=== PATIENT | female | born 1945 | race Caucasian/White ===

== ENCOUNTER 2024-10-27 14:38 | Inpatient (IN) | payer MEDICARE, MEDICAID ==
[~2024-10-27] VITALS: Ht 162.6 cm; Wt 68.0 kg
[2024-10-27 15:13] VITALS: PULSE 64; RESP 16; O2SAT 92
[2024-10-27 15:37] LABS: BASOPHILS % (AUTO) 0.2 % (0-1); EOSINOPHILS % (AUTO) 0 % (0-6); HEMATOCRIT 34.9 % (35.0-45.0); HEMOGLOBIN 11.5 g/dl (12.0-16.0); LYMPHOCYTES # (AUTO) 1.7 X10'3 (1.1-4.8); LYMPHOCYTES % (AUTO) 8.2 % (21-51); MEAN CORPUSCULAR HEMOGLOBIN 30.1 PG (27.0-31.0); MEAN CORPUSCULAR HGB CONC 32.9 g/dL (33.0-36.5); MEAN CORPUSCULAR VOLUME 91.6 FL (78-98); MEAN PLATELET VOLUME 6.8 FL (7.4-10.4); MONOCYTES # (AUTO) 0.5 X10'3 (0-0.9); MONOCYTES % (AUTO) 2.2 % (2-12); NEUTROPHILS # (AUTO) 18.8 X10'3 (1.8-7.7); NEUTROPHILS % (AUTO) 89.4 % (42-75); PLATELET COUNT 305 X10'3 (140-440); RED BLOOD COUNT 3.81 X10'6 (4.20-5.60); RED CELL DISTRIBUTION WIDTH 16.6 % (11.5-14.5); WHITE BLOOD COUNT 21.1 X10'3 (4.5-11.0)
[2024-10-27 15:56] LABS: PLATELET ESTIMATE NORMAL; TOTAL CELLS COUNTED 100
[2024-10-27 15:57] LABS: ACANTHOCYTES 1+; ANISOCYTOSIS 1+
[2024-10-27 16:21] LABS: ALBUMIN 2.7 G/DL (3.4-5.0); ALBUMIN/GLOBULIN RATIO 0.7 (1.1-1.5); ALKALINE PHOSPHATASE 338 IU/L (46-116); ANION GAP 1 (8-16); ASPARTATE AMINO TRANSFERASE 713 U/L (10-37); BILIRUBIN,TOTAL 0.5 MG/DL (0.1-1.0); BLOOD UREA NITROGEN 22 MG/DL (7-18); BUN/CREATININE RATIO 41.5 (10.0-20.0); CALCIUM 9.3 MG/DL (8.5-10.1); CHLORIDE 96 MMOL/L (99-107); CREATININE 0.53 MG/DL (0.40-0.90); GLUCOSE 184 MG/DL (70-104); LIPASE 32 U/L (16-77); POTASSIUM 4.3 MMOL/L (3.5-5.1); SODIUM 131 MMOL/L (135-145); TOTAL PROTEIN 6.5 G/DL (6.4-8.2); eCRCL 73 ML/MIN; eGFR > 90 ML/MIN
[2024-10-27 16:24] LABS: ALANINE AMINOTRANSFERASE 3482 U/L (12-78)
[2024-10-27 17:02] LABS: BILIRUBIN,URINE NEGATIVE (Neg); CLARITY,URINE SLIGHTLY CLOUDY (Clear); COLOR,URINE YELLOW (Yellow); GLUCOSE, URINE NEGATIVE (Neg); KETONES,URINE NEGATIVE (Neg); LEUKOCYTE ESTERASE ,URINE LARGE (Neg); NITRITES, URINE POSITIVE (Neg); OCCULT BLOOD,URINE SMALL (Neg); PH,URINE 8.5 (4.8-8.0); PROTEIN,URINE 30 mg/dl (Neg)
[2024-10-27 17:09] LABS: UA COLLECTION TYPE FOLEY CATH
[2024-10-27] MEDS: piperacillin/tazo 3.375gm/50ml 50 ML IV SCH (17:10)
[2024-10-27 17:13] LABS: BACTERIA,URINE 4+ /HPF (Neg); SQUAMOUS EPITHELIAL CELL,UR NONE SEEN /LPF (FEW); TRIPLE PHOSPHATE CRYST 2+ /HPF (NEGATIVE); WBC,URINE TNTC /HPF (0-4)
[2024-10-27 17:14] LABS: YEAST MODERATE /HPF (NEGATIVE)
[2024-10-27 20:26] VITALS: PULSE 51; RESP 16; O2SAT 96
[2024-10-27] MEDS ORDERED: magnesium sulf-water 2g/50mL 50 ML IV PRN (22:00)
[2024-10-27] MEDS ORDERED: mag hydrox/Alum hydrox/simeth 30ml oral suspension PO PRN (22:00)
[2024-10-27] MEDS ORDERED: acetaminophen 325mg tablet PO PRN (22:00)
[2024-10-27] MEDS ORDERED: magnesium sulf-water 4G/100mL 100 ML IV PRN (22:00)
[2024-10-27] MEDS ORDERED: magnesium hydroxide 30ml (MOM) UD suspension PO PRN (22:00)
[2024-10-27] MEDS ORDERED: magnesium Cl slow-release 64mg tablet PO PRN (22:00)
[2024-10-27] MEDS ORDERED: ondansetron/PF 4mg/2ml inj IV PRN (22:00)
[2024-10-27] MEDS ORDERED: potassium Cl 20 mEq SR tablet PO PRN ×2 (22:00)
[2024-10-27] MEDS ORDERED: potassium Cl 40MEQ/1/2NS 520ml 520 ML IV PRN (22:00)
[2024-10-27] MEDS ORDERED: morphine 2 MG/ML inj. syringe IV PRN ×2 (22:00)
[2024-10-27] MEDS: PERFLUTREN PROTEIN-A MICROSPHR (Optison) 0.22 MG/ML 3ML VIAL IV ONE (22:15)
[2024-10-27] MEDS: normal saline 1000ml 1,000 ML IV SCH (22:18)
[2024-10-27 22:46] LABS: ACETAMINOPHEN < 2.0 UG/ML (10-30); HEMOGLOBIN A1C 7.2 % (4.5-6.2)
[2024-10-27 23:20] VITALS: PULSE 54; RESP 16; O2SAT 95
[2024-10-27 23:45] VITALS: BP 130/50; PULSE 56; RESP 15; RESP 22; TEMP 97.8; O2SAT 92; O2SAT 95
[2024-10-28] VITALS (14 sets, daily range): BP systolic 110–145; BP diastolic 55–88; PULSE 54–70; RESP 14–28; TEMP 96.7–98.4; O2SAT 88–97
[2024-10-28] MEDS: piperacillin/tazo 3.375gm/50ml 50 ML IV SCH (01:27)
[2024-10-28] MEDS ORDERED: ipratropium/albuterol 3ml nebule NEB PRN (04:15)
[2024-10-28 07:26] LABS: BASOPHILS % (AUTO) 0.3 % (0-1); EOSINOPHILS % (AUTO) 0.1 % (0-6); HEMATOCRIT 33.9 % (35.0-45.0); HEMOGLOBIN 11.5 g/dl (12.0-16.0); LYMPHOCYTES # (AUTO) 2.6 X10'3 (1.1-4.8); LYMPHOCYTES % (AUTO) 13.7 % (21-51); MEAN CORPUSCULAR HEMOGLOBIN 31.3 PG (27.0-31.0); MEAN CORPUSCULAR HGB CONC 33.8 g/dL (33.0-36.5); MEAN CORPUSCULAR VOLUME 92.5 FL (78-98); MEAN PLATELET VOLUME 6.8 FL (7.4-10.4); MONOCYTES # (AUTO) 1.1 X10'3 (0-0.9); MONOCYTES % (AUTO) 5.6 % (2-12); NEUTROPHILS # (AUTO) 15.2 X10'3 (1.8-7.7); NEUTROPHILS % (AUTO) 80.3 % (42-75); PLATELET COUNT 265 X10'3 (140-440); RED BLOOD COUNT 3.66 X10'6 (4.20-5.60); RED CELL DISTRIBUTION WIDTH 16.2 % (11.5-14.5); WHITE BLOOD COUNT 18.9 X10'3 (4.5-11.0)
[2024-10-28 07:37] LABS: ALBUMIN 2.6 G/DL (3.4-5.0); ALBUMIN/GLOBULIN RATIO 0.7 (1.1-1.5); ALKALINE PHOSPHATASE 283 IU/L (46-116); ANION GAP 5 (8-16); ASPARTATE AMINO TRANSFERASE 354 U/L (10-37); BILIRUBIN,TOTAL 0.6 MG/DL (0.1-1.0); BLOOD UREA NITROGEN 21 MG/DL (7-18); BUN/CREATININE RATIO 47.7 (10.0-20.0); CALCIUM 9.3 MG/DL (8.5-10.1); CHLORIDE 97 MMOL/L (99-107); CHOLESTEROL 156 MG/DL (0-200); CREATININE 0.44 MG/DL (0.40-0.90); GLUCOSE 85 MG/DL (70-104); HDL CHOLESTEROL 78 MG/DL (35-60); LDL CHOLESTEROL 45 MG/DL (50-100); MAGNESIUM 2.1 MG/DL (1.5-2.4); POTASSIUM 3.8 MMOL/L (3.5-5.1); SODIUM 133 MMOL/L (135-145); TOTAL CARBON DIOXIDE 30.8 MMOL/L (24-32); TOTAL PROTEIN 6.5 G/DL (6.4-8.2); TRIGLYCERIDES 119 MG/DL (20-135); eCRCL 88 ML/MIN; eGFR > 90 ML/MIN
[2024-10-28 07:48] LABS: ALANINE AMINOTRANSFERASE 2730 U/L (12-78)
[2024-10-28] MEDS: docusate sod 100mg capsule PO SCH (08:00)
[2024-10-28] MEDS: K and/or MAG REPLACEMENT MC SCH (08:00)
[2024-10-28 10:38] LABS: PRO BRAIN NATRIURETIC PEPTIDE 179 PG/ML (0-450)
[2024-10-28] MEDS ORDERED: iohexol 300mg/ml 100ml inj. ONE (11:18)
[2024-10-28] MEDS ORDERED: TIOT4MIS2 (14:01)
[2024-10-28] MEDS ORDERED: VALS40TA2 PO (14:01)
[2024-10-28] MEDS ORDERED: LIDO1ADH78 TOP (14:01)
[2024-10-28] MEDS ORDERED: TRAM50TA2 PO (14:01)
[2024-10-28] MEDS ORDERED: LEVO75TA7 PO (14:01)
[2024-10-28] MEDS ORDERED: FORM20VI IH (14:01)
[2024-10-28] MEDS ORDERED: SIME80TA15 PO (14:01)
[2024-10-28] MEDS ORDERED: MEMA10TA22 PO (14:01)
[2024-10-28] MEDS ORDERED: LOP12.5T PO (14:01)
[2024-10-28] MEDS ORDERED: AMLO5TAB PO (14:01)
[2024-10-28] MEDS ORDERED: AZIT250T83 PO (14:01)
[2024-10-28] MEDS ORDERED: THIA50TA10 PO (14:01)
[2024-10-28] MEDS ORDERED: BUDE0.5A11 NEB (14:01)
[2024-10-28] MEDS ORDERED: ALBU2.5V12 NEB (14:01)
[2024-10-28] MEDS ORDERED: SENN8.6T19 PO (14:01)
[2024-10-28] MEDS ORDERED: FAMO20TA8 PO (14:01)
[2024-10-28] MEDS ORDERED: APIX5TAB3 PO (14:01)
[2024-10-28] MEDS ORDERED: SODI1TAB2 PO (14:01)
[2024-10-28] MEDS ORDERED: acetylcysteine sol. 200 MG/ML 4ml vial PO SCH (17:30)
[2024-10-28] MEDS ORDERED: PRED10TA23 PO (17:37)
[2024-10-28] MEDS ORDERED: DOCU283E RC (17:37)
[2024-10-28] MEDS ORDERED: TIOT18CA3 INH (17:37)
[2024-10-28] MEDS ORDERED: ACET-1015 PO (17:37)
[2024-10-28] MEDS ORDERED: FURO40SO4 IV (17:37)
[2024-10-28] MEDS ORDERED: CYCL-920 PO (17:37)
[2024-10-28] MEDS ORDERED: LACT1CAP65 PO (17:37)
[2024-10-28] MEDS ORDERED: [UNRECOGNIZED DRUG - CODE] IV (17:37)
[2024-10-28] MEDS ORDERED: POLY17PO10 PO (17:37)
[2024-10-28] MEDS: acetylcysteine sol. 200 MG/ML 4ml vial PO SCH (21:57)
[2024-10-29] VITALS (16 sets, daily range): BP systolic 107–131; BP diastolic 48–70; PULSE 58–90; RESP 12–29; TEMP 96.2–97.3; O2SAT 84–95
[2024-10-29 07:06] LABS: BASOPHILS % (AUTO) 0.2 % (0-1); EOSINOPHILS # (AUTO) 0.1 X10'3 (0-0.9); EOSINOPHILS % (AUTO) 0.4 % (0-6); HEMATOCRIT 36.5 % (35.0-45.0); HEMOGLOBIN 11.9 g/dl (12.0-16.0); LYMPHOCYTES # (AUTO) 2.4 X10'3 (1.1-4.8); LYMPHOCYTES % (AUTO) 14.3 % (21-51); MEAN CORPUSCULAR HEMOGLOBIN 29.9 PG (27.0-31.0); MEAN CORPUSCULAR HGB CONC 32.5 g/dL (33.0-36.5); MEAN CORPUSCULAR VOLUME 91.8 FL (78-98); MEAN PLATELET VOLUME 7.2 FL (7.4-10.4); MONOCYTES # (AUTO) 1.1 X10'3 (0-0.9); MONOCYTES % (AUTO) 6.3 % (2-12); NEUTROPHILS # (AUTO) 13.4 X10'3 (1.8-7.7); NEUTROPHILS % (AUTO) 78.8 % (42-75); PLATELET COUNT 264 X10'3 (140-440); RED BLOOD COUNT 3.98 X10'6 (4.20-5.60); RED CELL DISTRIBUTION WIDTH 16.9 % (11.5-14.5)
[2024-10-29] MEDS: CefTRIAXone/D5W-Rocephin 1gm 50 ML IV SCH (07:33)
[2024-10-29 08:00] LABS: ALBUMIN 2.7 G/DL (3.4-5.0); ALBUMIN/GLOBULIN RATIO 0.7 (1.1-1.5); ALKALINE PHOSPHATASE 250 IU/L (46-116); ANION GAP 7 (8-16); ASPARTATE AMINO TRANSFERASE 166 U/L (10-37); BILIRUBIN,TOTAL 0.7 MG/DL (0.1-1.0); BLOOD UREA NITROGEN 17 MG/DL (7-18); BUN/CREATININE RATIO 45.9 (10.0-20.0); CALCIUM 9.3 MG/DL (8.5-10.1); CHLORIDE 97 MMOL/L (99-107); CREATININE 0.37 MG/DL (0.40-0.90); GLUCOSE 75 MG/DL (70-104); MAGNESIUM 2.1 MG/DL (1.5-2.4); POTASSIUM 3.6 MMOL/L (3.5-5.1); SODIUM 133 MMOL/L (135-145); TOTAL CARBON DIOXIDE 29.3 MMOL/L (24-32); TOTAL PROTEIN 6.6 G/DL (6.4-8.2); eCRCL 105 ML/MIN; eGFR > 90 ML/MIN
[2024-10-29 08:02] LABS: ALANINE AMINOTRANSFERASE 1965 U/L (12-78)
[2024-10-29] MEDS ORDERED: DOCUSATE SODIUM RC PRN (16:15)
[2024-10-29] MEDS ORDERED: DEXTROSE 15 GM of carb/4 tabs (each vial/BOTTLE has 4 tablets) PO PRN ×2 (16:20)
[2024-10-29] MEDS ORDERED: dextrose 50%-water 50ml dispensing syringe IV PRN ×2 (16:20)
[2024-10-29] MEDS ORDERED: glucagon, human recombinant 1mg kit SUBCUT PRN (16:20)
[2024-10-29] MEDS: INSULIN LISPRO 100 UNIT/ML INSULN.PEN MULTI-DOSE SQ SCH (17:00)
[2024-10-29] MEDS: budesonide 0.5mg/2ml UD nebule IH SCH (19:26)
[2024-10-29] MEDS: albuterol 2.5 MG/3 ML nebule NEB SCH (19:26)
[2024-10-29] MEDS: memantine 5mg tablet PO SCH (19:48)
[2024-10-29] MEDS: famotidine 20mg tablet PO SCH (19:48)
[2024-10-29] MEDS: apixaban 5mg tablet PO SCH (19:48)
[2024-10-29] MEDS: amLODIPine 5mg tablet PO SCH (19:49)
[2024-10-29] MEDS: metoprolol tartrate 12.5mg (1/2 tablet) PO SCH (19:50)
[2024-10-29] MEDS ORDERED: cyclobenzaprine 10mg tablet PO PRN (21:00)
[2024-10-30] VITALS (25 sets, daily range): BP systolic 80–133; BP diastolic 47–64; PULSE 52–68; RESP 13–21; TEMP 96.7–97.7; O2SAT 88–95
[2024-10-30 06:25] LABS: BASOPHILS % (AUTO) 0.1 % (0-1); EOSINOPHILS # (AUTO) 0.1 X10'3 (0-0.9); EOSINOPHILS % (AUTO) 0.4 % (0-6); HEMATOCRIT 31.2 % (35.0-45.0); HEMOGLOBIN 10.4 g/dl (12.0-16.0); LYMPHOCYTES # (AUTO) 2.5 X10'3 (1.1-4.8); LYMPHOCYTES % (AUTO) 15.1 % (21-51); MEAN CORPUSCULAR HEMOGLOBIN 30.9 PG (27.0-31.0); MEAN CORPUSCULAR HGB CONC 33.4 g/dL (33.0-36.5); MEAN CORPUSCULAR VOLUME 92.4 FL (78-98); MEAN PLATELET VOLUME 7.2 FL (7.4-10.4); MONOCYTES # (AUTO) 1.1 X10'3 (0-0.9); MONOCYTES % (AUTO) 6.8 % (2-12); NEUTROPHILS # (AUTO) 12.8 X10'3 (1.8-7.7); NEUTROPHILS % (AUTO) 77.6 % (42-75); PLATELET COUNT 238 X10'3 (140-440); RED BLOOD COUNT 3.38 X10'6 (4.20-5.60); RED CELL DISTRIBUTION WIDTH 16.6 % (11.5-14.5); WHITE BLOOD COUNT 16.5 X10'3 (4.5-11.0)
[2024-10-30 06:47] LABS: ALBUMIN 2.4 G/DL (3.4-5.0); ALBUMIN/GLOBULIN RATIO 0.7 (1.1-1.5); ALKALINE PHOSPHATASE 204 IU/L (46-116); ANION GAP 5 (8-16); ASPARTATE AMINO TRANSFERASE 68 U/L (10-37); BILIRUBIN,TOTAL 0.6 MG/DL (0.1-1.0); BLOOD UREA NITROGEN 22 MG/DL (7-18); BUN/CREATININE RATIO 52.4 (10.0-20.0); CHLORIDE 98 MMOL/L (99-107); CREATININE 0.42 MG/DL (0.40-0.90); GLUCOSE 105 MG/DL (70-104); POTASSIUM 3.7 MMOL/L (3.5-5.1); SODIUM 132 MMOL/L (135-145); TOTAL CARBON DIOXIDE 29.1 MMOL/L (24-32); TOTAL PROTEIN 5.9 G/DL (6.4-8.2); eCRCL 92 ML/MIN; eGFR > 90 ML/MIN
[2024-10-30 06:56] LABS: ALANINE AMINOTRANSFERASE 1227 U/L (12-78)
[2024-10-30 07:22] LABS: HBSAG SCREEN Negative (Negative); HEP A AB, IGM Negative (Negative); HEP B CORE AB, IGM Negative (Negative); HEP B CORE AB, TOT Negative (Negative); HEP B SURF AB Non Reactive (.)
[2024-10-30 07:25] LABS: PLATELET ESTIMATE NORMAL; TOTAL CELLS COUNTED 100
[2024-10-30 07:26] LABS: ANISOCYTOSIS 1+
[2024-10-30] MEDS: lactobacillus rhamnosus 10,000 MMU CELLS/CAPSULE PO SCH (07:53)
[2024-10-30] MEDS: levoTHYROXINE 75mcg tablet PO SCH (07:54)
[2024-10-30] MEDS ORDERED: SULF1TAB49 PO (13:04)
[2024-10-31] VITALS (26 sets, daily range): BP systolic 104–135; BP diastolic 46–59; PULSE 54–68; RESP 14–25; TEMP 97.4–98.1; O2SAT 87–97
[2024-10-31 06:40] LABS: ALANINE AMINOTRANSFERASE 841 U/L (12-78); ALBUMIN 2.3 G/DL (3.4-5.0); ALBUMIN/GLOBULIN RATIO 0.7 (1.1-1.5); ALKALINE PHOSPHATASE 173 IU/L (46-116); ANION GAP 6 (8-16); ASPARTATE AMINO TRANSFERASE 44 U/L (10-37); BILIRUBIN,TOTAL 0.6 MG/DL (0.1-1.0); BLOOD UREA NITROGEN 10 MG/DL (7-18); CALCIUM 8.6 MG/DL (8.5-10.1); CHLORIDE 100 MMOL/L (99-107); CREATININE 0.27 MG/DL (0.40-0.90); GLUCOSE 81 MG/DL (70-104); MAGNESIUM 1.9 MG/DL (1.5-2.4); POTASSIUM 3.3 MMOL/L (3.5-5.1); SODIUM 133 MMOL/L (135-145); TOTAL CARBON DIOXIDE 26.6 MMOL/L (24-32); TOTAL PROTEIN 5.6 G/DL (6.4-8.2); eCRCL 144 ML/MIN; eGFR > 90 ML/MIN
[2024-10-31 08:24] LABS: BASOPHILS # (AUTO) 0.1 X10'3 (0-0.2); BASOPHILS % (AUTO) 0.4 % (0-1); EOSINOPHILS # (AUTO) 0.1 X10'3 (0-0.9); EOSINOPHILS % (AUTO) 0.6 % (0-6); HEMATOCRIT 30.7 % (35.0-45.0); HEMOGLOBIN 10.1 g/dl (12.0-16.0); LYMPHOCYTES # (AUTO) 1.8 X10'3 (1.1-4.8); LYMPHOCYTES % (AUTO) 13.7 % (21-51); MEAN CORPUSCULAR HEMOGLOBIN 30.6 PG (27.0-31.0); MEAN CORPUSCULAR VOLUME 92.6 FL (78-98); MEAN PLATELET VOLUME 7.2 FL (7.4-10.4); MONOCYTES # (AUTO) 0.9 X10'3 (0-0.9); MONOCYTES % (AUTO) 6.8 % (2-12); NEUTROPHILS # (AUTO) 10.1 X10'3 (1.8-7.7); NEUTROPHILS % (AUTO) 78.5 % (42-75); PLATELET COUNT 185 X10'3 (140-440); RED BLOOD COUNT 3.32 X10'6 (4.20-5.60); RED CELL DISTRIBUTION WIDTH 17.1 % (11.5-14.5); WHITE BLOOD COUNT 12.9 X10'3 (4.5-11.0)
[2024-10-31] MEDS ORDERED: magnesium Cl slow-release 64mg tablet PO PRN (10:05)
[2024-10-31] MEDS ORDERED: potassium Cl 40MEQ/1/2NS 520ml 520 ML IV PRN (10:05)
[2024-10-31] MEDS ORDERED: potassium Cl 20 mEq SR tablet PO PRN (10:05)
[2024-10-31] MEDS ORDERED: magnesium sulf-water 2g/50mL 50 ML IV PRN (10:05)
[2024-10-31] MEDS ORDERED: magnesium sulf-water 4G/100mL 100 ML IV PRN (10:05)
[2024-10-31 11:56] LABS: PRO BRAIN NATRIURETIC PEPTIDE 261 PG/ML (0-450)
[2024-10-31] MEDS: potassium Cl 20 mEq SR tablet PO PRN (13:03)
[2024-10-31] MEDS: furosemide 20 MG/2 ML vial IV SCH (13:07)
[2024-10-31] MEDS: K and/or MAG REPLACEMENT MC SCH (20:00)
[2024-11-01] VITALS (12 sets, daily range): BP systolic 105–122; BP diastolic 52; PULSE 56–67; RESP 17–25; TEMP 97–97.9; O2SAT 90–97
[2024-11-01 06:58] LABS: BASOPHILS # (AUTO) 0.1 X10'3 (0-0.2); BASOPHILS % (AUTO) 0.4 % (0-1); EOSINOPHILS # (AUTO) 0.1 X10'3 (0-0.9); EOSINOPHILS % (AUTO) 0.9 % (0-6); HEMATOCRIT 30.2 % (35.0-45.0); HEMOGLOBIN 10.1 g/dl (12.0-16.0); LYMPHOCYTES # (AUTO) 1.8 X10'3 (1.1-4.8); LYMPHOCYTES % (AUTO) 14.5 % (21-51); MEAN CORPUSCULAR HEMOGLOBIN 30.9 PG (27.0-31.0); MEAN CORPUSCULAR HGB CONC 33.5 g/dL (33.0-36.5); MEAN CORPUSCULAR VOLUME 92.2 FL (78-98); MEAN PLATELET VOLUME 7.6 FL (7.4-10.4); MONOCYTES # (AUTO) 0.8 X10'3 (0-0.9); MONOCYTES % (AUTO) 6.3 % (2-12); NEUTROPHILS # (AUTO) 9.8 X10'3 (1.8-7.7); NEUTROPHILS % (AUTO) 77.9 % (42-75); PLATELET COUNT 210 X10'3 (140-440); RED BLOOD COUNT 3.28 X10'6 (4.20-5.60); RED CELL DISTRIBUTION WIDTH 16.9 % (11.5-14.5); WHITE BLOOD COUNT 12.6 X10'3 (4.5-11.0)
[2024-11-01 07:11] LABS: ALANINE AMINOTRANSFERASE 619 U/L (12-78); ALBUMIN 2.3 G/DL (3.4-5.0); ALBUMIN/GLOBULIN RATIO 0.6 (1.1-1.5); ALKALINE PHOSPHATASE 169 IU/L (46-116); ANION GAP 5 (8-16); ASPARTATE AMINO TRANSFERASE 29 U/L (10-37); BILIRUBIN,TOTAL 0.5 MG/DL (0.1-1.0); BLOOD UREA NITROGEN 10 MG/DL (7-18); BUN/CREATININE RATIO 29.4 (10.0-20.0); CHLORIDE 99 MMOL/L (99-107); CREATININE 0.34 MG/DL (0.40-0.90); GLUCOSE 103 MG/DL (70-104); POTASSIUM 4.1 MMOL/L (3.5-5.1); SODIUM 132 MMOL/L (135-145); TOTAL CARBON DIOXIDE 28.1 MMOL/L (24-32); eCRCL 114 ML/MIN; eGFR > 90 ML/MIN
[2024-11-02 11:36] LABS: HBV IU/mL HBV DNA not detected IU/mL (.)
== END 2024-11-01 15:07 | DRG 871 ==
LOC: ER 14:39 → ED HOLD 19:53 → PCU 3S 23:45
PROVIDERS: ADMIT Internal Medicine Pulmonary Disease; ATTEND Internal Medicine
PROC: BW211ZZ Computerized Tomography (CT Scan) of Abdomen and Pelvis using Low Osmolar Contrast (ICD-10-PCS; principal; 2024-10-28)
PROC: 5A0945A Assistance with Respiratory Ventilation, 24-96 Consecutive Hours, High Flow/Velocity Cannula (ICD-10-PCS; 2024-10-30)
DX: A41.9 Sepsis, unspecified organism (principal); J18.9 Pneumonia, unspecified organism; J96.21 Acute and chronic respiratory failure with hypoxia; N39.0 Urinary tract infection, site not specified; I50.32 Chronic diastolic (congestive) heart failure; E87.1 Hypo-osmolality and hyponatremia; J44.0 Chronic obstructive pulmonary disease with (acute) lower respiratory infection; R74.01 Elevation of levels of liver transaminase levels; E03.9 Hypothyroidism, unspecified; I25.10 Atherosclerotic heart disease of native coronary artery without angina pectoris; N20.0 Calculus of kidney; Z66 Do not resuscitate; K76.0 Fatty (change of) liver, not elsewhere classified; D63.8 Anemia in other chronic diseases classified elsewhere; I44.0 Atrioventricular block, first degree; E11.9 Type 2 diabetes mellitus without complications; E87.6 Hypokalemia; Z79.899 Other long term (current) drug therapy; Z88.8 Allergy status to other drugs, medicaments and biological substances; Z91.030 Bee allergy status; Z90.49 Acquired absence of other specified parts of digestive tract; J43.9 Emphysema, unspecified
CPT/HCPCS: 36415; 71045; 71250; 74177; 76700; 80053; 80061; 80329; 81001; 82948; 83036; 83605; 83690; 83735; 83880; 84145; 85007; 85025; 86704; 86705; 86706; 86709; 87040; 87081; 87340; 87517; 93306; 94640; 94760; 96365; 97110; 97161; 97530; 99291; A6213; A6449; G0378; J0696; J1815; J1940; J2543; J3490; J7030; J7040; Q9967